=== PATIENT | female | born 1995 | race Caucasian/White ===

== ENCOUNTER 2023-10-09 10:06 | Emergency (ER) | payer OTHER, SELFPAY ==
[2023-10-09 10:21] VITALS: BP 100/64
[2023-10-09 11:00] VITALS: BP 113/64
[2023-10-09 11:08] LABS: Urine Albumin Trace (Neg - Trace); Urine Bilirubin Negative (Negative); Urine Character Slightly Cloudy (Clear); Urine Color Yellow; Urine Glucose Negative (Negative); Urine Ketone 1+ (Negative); Urine Leukocyte 2+ (Negative); Urine Nitrite Negative (Negative); Urine Occult Blood Negative (Negative); Urine Urobilinogen Negative (Neg - 1+)
[2023-10-09] MEDS: ZOFRAN 4 MG IV (11:11)
[2023-10-09] MEDS: TYLENOL 650 MG PO (11:11)
[2023-10-09] MEDS: NSS 1000 IV (11:11)
--- NOTE | 2023-10-09 11:17 | ED.GENMED ---
History of Present Illness
General
Chief Complaint: Headache
Source: patient
Exam Limitations: none
Time Seen by Provider: 10/09/23 10:36
Nursing documentation reviewed up to this point in time: agreed with
History of Present Illness
History of Present Illness:
27 y/o F with h/o depression
12 weeks preg, [facility], has had US ocnfirming
has had ongoin issues wth n/v during , not requiring meds or ED evals or admissions but the past 3 days she has had headache, low grade temp, sore throat, dry cough and back pain lower
no dysuria, hematuria
vomited x 3 today
feels dehydrated
headache
no meds taken for headache today
no previous issues with preeclampsia
unvaccinated covid
Past History
Past History
ED Past Medical History: Psychiatric (Anxiety, Depression) and Other (poison LOCO)
ED Past Surgical History: (x 2)
Social History
Tobacco: Former smoker
Alcohol: None
Personal:
Living: with family
Review of Systems
Review of Systems
Allergies reviewed?: Yes
All Other Systems: Not applicable
Phy Exam
Physical Exam
Physical Exam:
GENERAL: Alert , in no apparent distress
ENT: o/p clr, mmm. Mild pharyngeal erythema, stippling, no exudate
CARDIAC: Regular rate and rhythm .
LUNGS: Clear breath sounds bilaterally, no acute respiratory distress, no wheezes/rales/rhonchi, dry cough
ABDOMEN: Soft, without focal tenderness, no r/g, no cvat, normal bowel sounds
NEUROLOGICAL: Alert and oriented, no focal neuro deficits
SKIN: Warm and dry, skin intact.
MUSCULOSKELETAL: No edema, well perfused. neg noemy's sign
PSYCH: Normal and appropriate interaction.
Course
Orders/Labs/Results
Orders:
Orders
10/09/23 10:58
Urinalysis Reflex To Culture Urgent
Date Specimen was Collected: 10/09/23
Time Specimen was Collected: 10:39
Urine Microscopic Reflex Cult Urgent
Urine Culture Urgent
JUAN Source: U
Specimen Description:
Date Specimen was Collected: 10/09/23
Time Specimen was Collected: 10:39
0.9% Sodium Chloride 1000 ml [Nss] 1,000 ml IV BOLUS
Acetaminophen [Tylenol] 650 mg PO NOW STA
Ondansetron Injectable [Zofran] 4 mg IV NOW STA
10/09/23 11:10
COVID-19 Antigen Urgent
Source: Nasal Swab
Complete Blood Count/With Diff Urgent
Comprehensive Metabolic Panel Urgent
10/09/23 13:00
Dextrose 5%/0.9%Sodchl 1000 ml [D5/0.9% Sodium Chloride] 1,000 ml IV Wide Open mls/hr
10/09/23 13:37
CR Chest - 2 Views Urgent
Comment:
Reason For Exam: lu preg will sign the form
Abnormal Lab Results
10/09/23 10/09/23
10:58 11:10
RBC 4.12 L 10^6/uL
(4.20-5.40)
Hgb 11.8 L g/dL
(12.0-16.0)
Hct 34.0 L %
(37.0-47.0)
Absolute Neuts (auto) 8.0 H 10^3/uL
(1.4-6.5)
Absolute Lymphs (auto) 0.2 L 10^3/uL
(1.2-3.4)
Neutrophils % 91.7 H %
(42.2-75.2)
Lymphocytes % 2.5 L %
(20.5-51.1)
Carbon Dioxide 21 L mmol/L
(22-30)
Creatinine 0.5 L mg/dL
(0.6-1.0)
Urine Ketones 1+ A
(Negative)
Leukocyte Esterase Rfl 2+ A
(Negative)
Urine Bacteria (Reflex) Moderate A
(Negative)
SARS-CoV-2 Antigen Positive A
(Negative)
10/09/23 11:10
10/09/23 11:10
Vital Signs
Initial and Last Documented VS:
Initial Vital Signs
Temp Pulse Resp BP Pulse Ox
99.8 F 84 16 100/64 98
10/09/23 10:21 10/09/23 10:21 10/09/23 10:21 10/09/23 10:21 10/09/23 10:21
Last Documented Vital Signs
Temp Pulse Resp BP Pulse Ox
99.8 F 84 16 98/50 96
10/09/23 10:21 10/09/23 10:21 10/09/23 10:21 10/09/23 13:00 10/09/23 13:15
MDM/Problems Addressed
Differential Diagnosis Includes:
covid, URI, ,pneumonia,, pyelo, uti, hyperemesis
MDM/Problems Addressed:
19-year-old female 12 weeks G4, P3, IUP confirmed on ultrasound presents for 2 or 3 days of URI symptoms with a sore throat and a cough which is dry, with low-grade temperature, low back pain, lightheadedness when she stands and a few
episodes of nausea and vomiting which is not unlike her for her first trimester of this . Patient says she is unvaccinated for COVID. She has had no known exposures. Patient is borderline febrile here, mildly tachycardic, has some lower
back discomfort but no tenderness to her CVA region, no abdominal tenderness, clear lungs with a dry cough and moist mucous membranes. Her COVID test is positive
Her otherwise lab work shows what looks to be a contaminated urine with over 30 squamous cells and only 6-10 whites. At this point I would not treat this since she is not having urinary symptoms and more upper respiratory symptoms with
COVID-positive status.
discussed risk/benefit of remdesivir pt declined
cxr reviewed by me, neg
d/ chome with precautions
*Critical Care Note
Total Time (30-74mins, 75-104mins- exclusive of procedures): Not Applicable
ED Attending Note
-
Portions of this chart may have been created with voice recognition software.� Occasional wrong word or��sound alike� substitutions may have occurred due to the inherent limitations of voice recognition software.
Discharge Plan
Departure
Patient Disposition: Home (Routine Discharge)
Date of Disposition: 10/09/23
Time of Disposition: 14:05
Patient with high blood pressure during this ER visit?: No
Condition: Fair
Covid-19: Confirmed COVID-19
Discharge Problem:
COVID-19
Instructions: COVID-19 and ED
Prescriptions:
New
ondansetron HCl 4 mg tablet
4 mg PO Q8H PRN (Reason: nausea and vomiting) 1 Days Qty: 3 0RF
No Action
citalopram 20 mg Tablet
30 mg PO DAILY
prenat.vits,nasir,[id number]-yowyb Tablet
1 tab PO DAILY
acetaminophen 325 mg Tablet
650 mg PO Q4HPRN PRN (Reason: mild pain) Qty: 20 0RF
oxycodone-acetaminophen 5-325 mg Tablet
1 tab PO Q4HPRN PRN (Reason: moderate pain) Qty: 10 0RF
ibuprofen 600 mg Tablet
600 mg PO Q6HPRN PRN (Reason: cramps) Qty: 20 0RF
Referrals:
Rosalba Cifuentes, DO [Family Provider] - Follow up in 2-3 days
Activity Restrictions/Additional Instructions:
You tested positive for COVID-19. Usually the symptoms of a fever can last 5 to 7 days. You should take Tylenol every 6 hours as needed for headache and fever. Drink plenty of fluids. If you are feeling nauseated you can try a dose of Zofran 4
mg every 8-12 hours as needed.
Your urine seemed to be contaminated without obvious signs of infection, we will call you if we need to call you in an antibiotic
Return for any concerns like shortness of breath, severe fatigue, severe dehydration or any concerns
Interventions
Interventions:
*Risk Screen - Suicide Last Done: 10/09/23 10:38
*Neglect/Abuse Screening Last Done: 10/09/23 10:38
ED- Fall Risk Assessment Last Done: 10/09/23 10:38
*ED COVID-19 Vaccine History Last Done: 10/09/23 10:38
ED- Neurological Assessment Last Done: 10/09/23 10:56
Discharge Date and Time
Print Language: LITHUANIAN
[2023-10-09 11:33] LABS: % Basophils 0.2 % (0-2); % Eosinophils 0.5 % (0-6); % Immature Granulocytes 0.3 % (0-0.5); % Lymphocytes 2.5 % (20.5-51.1); % Monocytes 4.8 % (1.7-9.3); % Neutrophils 91.7 % (42.2-75.2); Absolute Lymphocytes 0.2 10^3/uL (1.2-3.4); Absolute Monocytes 0.4 10^3/uL (0.1-0.6); Hemoglobin 11.8 g/dL (12.0-16.0); Mean Corp Hgb Conc. 34.7 g/dL (33.0-37.0); Mean Corpuscular Hgb 28.6 pg (27.0-31.0); Mean Corpuscular Volume 82.5 fL (81.0-99.0); Mean Platelet Volume 9.6 fL (7.4-10.4); Nucleated Red Blood Cells % 0 %; Platelet Count 246 10^3/uL (130-400); Red Blood Cell Count 4.12 10^6/uL (4.20-5.40); Red Cell Dist. Width 13.2 % (11.5-14.5); White Blood Cell Count 8.7 10^3/uL (4.8-10.8)
[2023-10-09 11:38] LABS: COVID-19 Antigen Positive (Negative)
[2023-10-09 11:40] LABS: ALT (SGPT) 21 U/L (0-35); AST (SGOT) 20 U/L (14-36); Albumin 4.5 g/dl (3.5-5.0); Alkaline Phosphatase 67 U/L (38-126); Blood Urea Nitrogen 9 mg/dl (7-17); Calcium 9.8 mg/dl (8.4-10.2); Carbon Dioxide 21 mmol/L (22-30); Chloride 105 mmol/L (98-107); Glucose 93 mg/dl (70-99); Potassium 3.9 mmol/L (3.5-5.1); Sodium 135 mmol/L (135-145); Total Bilirubin 0.5 mg/dl (0.2-1.3); Total Protein 7.1 g/dl (6.3-8.2); eGFR > 60.00
[2023-10-09 12:00] VITALS: BP 77/32
[2023-10-09 12:15] LABS: Urine Squamous Cell >30 /LPF (Few); Urine Urothelial Cell 0-2 /LPF (FEW)
[2023-10-09 12:17] LABS: Urine Bacteria Moderate (Negative); Urine Red Blood Cell 0-2 /HPF (0-2)
[2023-10-09] MEDS: D5/0.9% SODIUM CHLORIDE 1000 IV (12:30)
[2023-10-09 13:00] VITALS: BP 98/50
== END 2023-10-09 15:35 | disposition home or self-care (01) ==
LOC: EMR 10:06
PROVIDERS: Physician Assistant; EMERGENCY PHYSICIAN Emergency Medicine; FAMILY PHYSICIAN Internal Medicine
DX: O98.511 Other viral diseases complicating pregnancy, first trimester (principal); U07.1 COVID-19; Z3A.12 12 weeks gestation of pregnancy; O99.341 Other mental disorders complicating pregnancy, first trimester; F32.A Depression, unspecified; Z87.891 Personal history of nicotine dependence; Z28.310 Unvaccinated for COVID-19
CPT/HCPCS: 99283; 96360; 96361; 71046; 80053; 81003; 81015; 85025; 87086; 87811

== ENCOUNTER 2023-12-21 11:22 | Emergency (ER) | payer OTHER, SELFPAY ==
[2023-12-21 11:24] VITALS: BP 111/62
[2023-12-21 12:50] LABS: Urine Albumin Trace (Neg - Trace); Urine Bilirubin Negative (Negative); Urine Character Very Cloudy (Clear); Urine Color Yellow; Urine Glucose Negative (Negative); Urine Ketone Trace (Negative); Urine Leukocyte 2+ (Negative); Urine Nitrite Negative (Negative); Urine Occult Blood 4+ (Negative); Urine Urobilinogen Negative (Neg - 1+)
[2023-12-21] MEDS: KEFLEX 500 MG PO (13:41)
--- NOTE | 2023-12-21 13:45 | ED.GENMED ---
History of Present Illness
General
Chief Complaint: Urinary Symptoms
Source: patient
Time Seen by Provider: 12/21/23 11:59
History of Present Illness
History of Present Illness:
28-year-old female who is at 23 weeks who presents complaining of dysuria, urinary frequency and could not get a hold of her doctor. No vaginal bleeding. Has had normal movement. Denies back pain.
Past History
Past History
ED Past Medical History: Psychiatric (Anxiety, Depression)
ED Past Surgical History: (x 2)
Social History
Tobacco: Former smoker
Alcohol: None
Personal:
Living: with family
Phy Exam
Physical Exam
Physical Exam:
CONSTITUTIONAL Patient alert and oriented to person, place and time. Well-appearing. Vital signs reviewed.
HEAD atraumatic, normocephalic.
EYES eyelids normal to inspection, Extraocular muscles intact, Conjunctiva normal, Sclera normal.
NECK normal range of motion, Trachea midline, no jugular venous distention.
RESPIRATORY CHEST No respiratory distress noted,
ABDOMEN abdomen nontender, Bowel sounds normal. No distention. Gravid uterus
BACK normal inspection, no obvious deformities, no CVA tenderness
UPPER EXTREMITY range of motion normal, Motor strength normal, no cyanosis, no edema.
LOWER EXTREMITY range of motion normal, Motor strength normal, no cyanosis, no edema.
NEURO Speech normal, No focal motor deficits, Gloria coma scale 15, Memory normal, Cranial Nerves intact to screening exam.
SKIN skin warm, dry, and normal in color.
PSYCHIATRIC patient oriented to person place and time, Normal affect.
Course
Orders/Labs/Results
Orders:
Orders
12/21/23 12:15
Urinalysis Reflex To Culture Urgent
Date Specimen was Collected: 12/21/23
Time Specimen was Collected: 11:51
Urine Microscopic Reflex Cult Urgent
Urine Culture Urgent
JUAN Source: U
Specimen Description:
Date Specimen was Collected: 12/21/23
Time Specimen was Collected: 11:51
12/21/23 12:45
Heart Tones ONCE
12/21/23 13:13
Cephalexin Monohydrate [Keflex] 500 mg PO NOW STA
Abnormal Lab Results
12/21/23
12:15
Urine Ketones Trace A
(Negative)
Ur Occult Blood Reflex 4+ A
(Negative)
Leukocyte Esterase Rfl 2+ A
(Negative)
Urine RBC 30-40 A /HPF
(0-2)
Urine WBC (Reflex) 26-30 A /HPF
(0-5)
Urine Bacteria (Reflex) Moderate A
(Negative)
Vital Signs
Initial and Last Documented VS:
Initial Vital Signs
Temp Pulse Resp BP Pulse Ox
98.2 F 97 18 111/62 97
12/21/23 11:24 12/21/23 11:24 12/21/23 11:24 12/21/23 11:24 12/21/23 11:24
Last Documented Vital Signs
Temp Pulse Resp BP Pulse Ox
98.2 F 97 18 111/62 97
12/21/23 11:24 12/21/23 11:24 12/21/23 11:24 12/21/23 11:24 12/21/23 11:24
MDM/Problems Addressed
MDM/Problems Addressed:
uti
*Pulse Oximetry
Patient hypoxic: no
*Critical Care Note
Total Time (30-74mins, 75-104mins- exclusive of procedures): Not Applicable
Data Reviewed
Source: patient
Patient Management
Escalation/DeEscalation of care consider admission/obs:
No signs of pyelonephritis. Treat with Keflex for now. check culture. ok for outpt mgmt
ED Attending Note
-
Portions of this chart may have been created with voice recognition software.� Occasional wrong word or��sound alike� substitutions may have occurred due to the inherent limitations of voice recognition software.
Discharge Plan
Departure
Patient Disposition: Home (Routine Discharge)
Date of Disposition: 12/21/23
Time of Disposition: 13:45
Patient with high blood pressure during this ER visit?: No
Discharge Problem:
UTI (urinary tract infection)
Instructions: Urinary Tract Infection, Adult (DC)
Prescriptions:
New
cephalexin 500 mg capsule
500 mg PO QID Qty: 28 0RF
No Action
citalopram 20 mg Tablet
30 mg PO DAILY
prenat.vits,nasir,gih-flin-bagfx Tablet
1 tab PO DAILY
acetaminophen 325 mg Tablet
650 mg PO Q4HPRN PRN (Reason: mild pain) Qty: 20 0RF
oxycodone-acetaminophen 5-325 mg Tablet
1 tab PO Q4HPRN PRN (Reason: moderate pain) Qty: 10 0RF
ibuprofen 600 mg Tablet
600 mg PO Q6HPRN PRN (Reason: cramps) Qty: 20 0RF
ondansetron HCl 4 mg tablet
4 mg PO Q8H PRN (Reason: nausea and vomiting) 1 Days Qty: 3 0RF
Referrals:
NONE,* [Family Provider] -
Activity Restrictions/Additional Instructions:
Return immediately for back pain, vomiting, fevers, vaginal bleeding, loss of movement, worsening symptoms or any other concerns. Please see your doctor in the next 48 hours for follow-up and reevaluation.
Interventions
Interventions:
*Risk Screen - Suicide Last Done: 12/21/23 11:24
*Neglect/Abuse Screening Last Done: 12/21/23 11:24
ED- Fall Risk Assessment Last Done: 12/21/23 11:55
*ED COVID-19 Vaccine History Last Done: 12/21/23 11:24
ED-Female Genitourinary Assessment Last Done: 12/21/23 12:40
Discharge Date and Time
Print Language: JAPANESE
[2023-12-21 13:50] LABS: Urine Bacteria Moderate (Negative); Urine Red Blood Cell 30-40 /HPF (0-2); Urine Squamous Cell 26-30 /LPF (Few); Urine White Cell 26-30 /HPF (0-5)
== END 2023-12-21 13:59 | disposition home or self-care (01) ==
LOC: EMR 11:22
PROVIDERS: EMERGENCY PHYSICIAN Emergency Medicine
DX: O23.42 Unspecified infection of urinary tract in pregnancy, second trimester (principal); O99.342 Other mental disorders complicating pregnancy, second trimester; Z3A.23 23 weeks gestation of pregnancy; F32.A Depression, unspecified; F41.9 Anxiety disorder, unspecified; Z87.891 Personal history of nicotine dependence
CPT/HCPCS: 99283; 81003; 81015; 87086

== ENCOUNTER 2024-02-11 11:06 | Emergency (ER) | payer OTHER, SELFPAY ==
[2024-02-11 11:27] VITALS: BP 120/65
[2024-02-11 12:10] LABS: % Basophils 0.3 % (0-2); % Eosinophils 0.3 % (0-6); % Immature Granulocytes 0.4 % (0-0.5); % Lymphocytes 10.2 % (20.5-51.1); % Monocytes 8.1 % (1.7-9.3); % Neutrophils 80.7 % (42.2-75.2); Absolute Lymphocytes 1.1 10^3/uL (1.2-3.4); Absolute Monocytes 0.9 10^3/uL (0.1-0.6); Absolute Neutrophils 8.4 10^3/uL (1.4-6.5); Hemoglobin 9.8 g/dL (12.0-16.0); Mean Corp Hgb Conc. 32.7 g/dL (33.0-37.0); Mean Corpuscular Hgb 28.9 pg (27.0-31.0); Mean Corpuscular Volume 88.5 fL (81.0-99.0); Mean Platelet Volume 9.7 fL (7.4-10.4); Nucleated Red Blood Cells % 0 %; Platelet Count 231 10^3/uL (130-400); Red Blood Cell Count 3.39 10^6/uL (4.20-5.40); Red Cell Dist. Width 12.8 % (11.5-14.5); White Blood Cell Count 10.4 10^3/uL (4.8-10.8)
[2024-02-11 12:25] LABS: ALT (SGPT) 15 U/L (0-35); AST (SGOT) 18 U/L (14-36); Albumin 3.8 g/dl (3.5-5.0); Alkaline Phosphatase 118 U/L (38-126); Blood Urea Nitrogen 5 mg/dl (7-17); Carbon Dioxide 21 mmol/L (22-30); Chloride 106 mmol/L (98-107); Glucose 108 mg/dl (70-99); Iron 135 ug/dl (37-170); Magnesium 1.9 mg/dl (1.6-2.3); Potassium 3.7 mmol/L (3.5-5.1); Sodium 137 mmol/L (135-145); Total Bilirubin 0.2 mg/dl (0.2-1.3); Total Protein 6.5 g/dl (6.3-8.2); eGFR > 60.00
[2024-02-11 12:34] LABS: Percent Saturation 28 % (20-50); Total Iron Binding Capacity 471 ug/dl (265-497)
[2024-02-11 12:58] LABS: TSH Reflex To Free T4 0.96 uIU/ml (0.47-4.68)
[2024-02-11 13:04] LABS: Ferritin 9.9 ng/ml (6.24-137)
[2024-02-11 13:24] VITALS: BP 96/66
--- NOTE | 2024-02-11 13:32 | ED.GENMED ---
History of Present Illness
<KARO Euceda - Last Filed: 02/11/24 16:53>
General
Chief Complaint: Abnormal Lab Value
Source: patient
Exam Limitations: none
Time Seen by Provider: 02/11/24 13:01
Nursing documentation reviewed up to this point in time: agreed with
History of Present Illness
History of Present Illness:
28 yr old female approx 30 wks presents to the ER for evaluation. For the past 3 weeks she is having heart racing and shortness of breath with exertion. She reports this is worse when she is walking up the steps or carrying her other
child. She has no prior history of DVT PE. No family history of DVT PE. She denies any lower extremity swelling. She denies any symptoms at rest.
She was told her iron was low about 1-1/2 weeks ago and is taking the iron tablets but vomiting them. Denies any recent illness fever chills cough.
She has no abdominal pain no vaginal bleeding no complaints of abdominal pain or cramping she does feel the baby move normally.
Patient is followed by at [facility].
Past History
<KARO Euceda - Last Filed: 02/11/24 16:53>
Past History
ED Past Medical History: Psychiatric (Anxiety, Depression)
ED Past Surgical History: (x 2)
Social History
Tobacco: Former smoker
Alcohol: None
Personal:
Living: with family
Review of Systems
<KARO Euceda - Last Filed: 02/11/24 16:53>
Review of Systems
Allergies reviewed?: Yes
All Other Systems: ROS reviewed and negative except as documented in HPI and ROS
Constitutional: Reports no symptoms
Respiratory: Reports trouble breathing
Cardiac: Reports palpitations
ABD/GI: Reports no symptoms
: Reports no symptoms
Musculoskeletal: Reports no symptoms
Skin: Reports no symptoms
Neurological: Reports no symptoms
Psychiatric: Reports no symptoms
Phy Exam
<KARO Euceda - Last Filed: 02/11/24 16:53>
General Physical Exam
General Presentation: no apparent distress
General age: appears stated age
General Skin: warm and dry
General Habitus: normal
General Mental: alert
General Hydration: appears well hydrated
Cardiovascular Exam
Cardiovascular Exam: tachycardia
Pulmonary Exam
Pulmonary Exam: lungs clear and no respiratory distress
Gastrointestinal Exam
Gastrointestinal Exam: other (Gravid abdomen)
Neurological Exam
Neurological Exam: alert and oriented x3
Musculoskeletal Exam
Musculoskeletal Exam: full ROM and other (No lower extremity swelling)
Skin Exam
Skin Exam: normal color and warm/dry
Psychiatric Exam
Psychiatric Exam: normal mood/affect
Course
<KARO Euceda - Last Filed: 02/11/24 16:53>
Orders/Labs/Results
Orders:
Orders
02/11/24 11:32
EKG [Electrocardiogram (*1)] Urgent
Reason for Study: Shortness of Breath
EKG- Treatment ONCE
02/11/24 11:52
Complete Blood Count/With Diff Urgent
Comprehensive Metabolic Panel Urgent
Ferritin Urgent
Iron Urgent
Magnesium Urgent
TIBC [Total Iron Binding] Urgent
TSH Reflex To Free T4 Urgent
02/11/24 13:43
Add On- LAB Urgent
Tests Added?: iron and tibc
02/11/24 14:36
0.9% Sodium Chloride 1000 ml [Nss] 1,000 ml IV BOLUS
02/11/24 16:45
Heart Tones ONCE
02/11/24 16:58
DDimer [D-Dimer] Urgent
Urinalysis Reflex To Culture Urgent
Date Specimen was Collected: 02/11/24
Time Specimen was Collected: 15:18
Urine Microscopic Reflex Cult Urgent
Urine Culture Urgent
JUAN Source: U
Specimen Description:
Date Specimen was Collected: 02/11/24
Time Specimen was Collected: 15:18
Abnormal Lab Results
02/11/24 02/11/24
11:52 16:58
RBC 3.39 L 10^6/uL
(4.20-5.40)
Hgb 9.8 L g/dL
(12.0-16.0)
Hct 30.0 L %
(37.0-47.0)
MCHC 32.7 L g/dL
(33.0-37.0)
Absolute Neuts (auto) 8.4 H 10^3/uL
(1.4-6.5)
Absolute Lymphs (auto) 1.1 L 10^3/uL
(1.2-3.4)
Absolute Monos (auto) 0.9 H 10^3/uL
(0.1-0.6)
Neutrophils % 80.7 H %
(42.2-75.2)
Lymphocytes % 10.2 L %
(20.5-51.1)
D-Dimer 0.52 H ug/mlFEU
(0.00-0.50)
Carbon Dioxide 21 L mmol/L
(22-30)
BUN 5 L mg/dl
(7-17)
Creatinine 0.4 L mg/dL
(0.6-1.0)
Glucose 108 H mg/dl
(70-99)
Urine Ketones 3+ A
(Negative)
Leukocyte Esterase Rfl 1+ A
(Negative)
Urine Bacteria (Reflex) Many A
(Negative)
02/11/24 11:52
02/11/24 11:52
Vital Signs
Initial and Last Documented VS:
Initial Vital Signs
Temp Pulse Resp BP Pulse Ox
98.8 F 120 16 120/65 98
02/11/24 11:27 02/11/24 11:27 02/11/24 11:27 02/11/24 11:27 02/11/24 11:27
Last Documented Vital Signs
Temp Pulse Resp BP Pulse Ox
98.8 F 106 17 97/53 98
02/11/24 11:27 02/11/24 17:45 02/11/24 17:45 02/11/24 17:00 02/11/24 17:45
<Katherine Marquez MD - Last Filed: 02/11/24 14:50>
Orders/Labs/Results
Orders:
Orders
02/11/24 11:32
EKG [Electrocardiogram (*1)] Urgent
Reason for Study: Shortness of Breath
EKG- Treatment ONCE
02/11/24 11:52
Complete Blood Count/With Diff Urgent
Comprehensive Metabolic Panel Urgent
Ferritin Urgent
Iron Urgent
Magnesium Urgent
TIBC [Total Iron Binding] Urgent
TSH Reflex To Free T4 Urgent
02/11/24 13:43
Add On- LAB Urgent
Tests Added?: iron and tibc
02/11/24 14:36
0.9% Sodium Chloride 1000 ml [Nss] 1,000 ml IV BOLUS
02/11/24 16:45
Heart Tones ONCE
02/11/24 16:58
DDimer [D-Dimer] Urgent
Urinalysis Reflex To Culture Urgent
Date Specimen was Collected: 02/11/24
Time Specimen was Collected: 15:18
Urine Microscopic Reflex Cult Urgent
Urine Culture Urgent
JUAN Source: U
Specimen Description:
Date Specimen was Collected: 02/11/24
Time Specimen was Collected: 15:18
Abnormal Lab Results
02/11/24 02/11/24
11:52 16:58
RBC 3.39 L 10^6/uL
(4.20-5.40)
Hgb 9.8 L g/dL
(12.0-16.0)
Hct 30.0 L %
(37.0-47.0)
MCHC 32.7 L g/dL
(33.0-37.0)
Absolute Neuts (auto) 8.4 H 10^3/uL
(1.4-6.5)
Absolute Lymphs (auto) 1.1 L 10^3/uL
(1.2-3.4)
Absolute Monos (auto) 0.9 H 10^3/uL
(0.1-0.6)
Neutrophils % 80.7 H %
(42.2-75.2)
Lymphocytes % 10.2 L %
(20.5-51.1)
D-Dimer 0.52 H ug/mlFEU
(0.00-0.50)
Carbon Dioxide 21 L mmol/L
(22-30)
BUN 5 L mg/dl
(7-17)
Creatinine 0.4 L mg/dL
(0.6-1.0)
Glucose 108 H mg/dl
(70-99)
Urine Ketones 3+ A
(Negative)
Leukocyte Esterase Rfl 1+ A
(Negative)
Urine Bacteria (Reflex) Many A
(Negative)
02/11/24 11:52
02/11/24 11:52
Vital Signs
Initial and Last Documented VS:
Initial Vital Signs
Temp Pulse Resp BP Pulse Ox
98.8 F 120 16 120/65 98
02/11/24 11:27 02/11/24 11:27 02/11/24 11:27 02/11/24 11:27 02/11/24 11:27
Last Documented Vital Signs
Temp Pulse Resp BP Pulse Ox
98.8 F 106 17 97/53 98
02/11/24 11:27 02/11/24 17:45 02/11/24 17:45 02/11/24 17:00 02/11/24 17:45
<Shaheen Arteaga PA-C - Last Filed: 02/11/24 19:47>
Orders/Labs/Results
Orders:
Orders
02/11/24 11:32
EKG [Electrocardiogram (*1)] Urgent
Reason for Study: Shortness of Breath
EKG- Treatment ONCE
02/11/24 11:52
Complete Blood Count/With Diff Urgent
Comprehensive Metabolic Panel Urgent
Ferritin Urgent
Iron Urgent
Magnesium Urgent
TIBC [Total Iron Binding] Urgent
TSH Reflex To Free T4 Urgent
02/11/24 13:43
Add On- LAB Urgent
Tests Added?: iron and tibc
02/11/24 14:36
0.9% Sodium Chloride 1000 ml [Nss] 1,000 ml IV BOLUS
02/11/24 16:45
Heart Tones ONCE
02/11/24 16:58
DDimer [D-Dimer] Urgent
Urinalysis Reflex To Culture Urgent
Date Specimen was Collected: 02/11/24
Time Specimen was Collected: 15:18
Urine Microscopic Reflex Cult Urgent
Urine Culture Urgent
JUAN Source: U
Specimen Description:
Date Specimen was Collected: 02/11/24
Time Specimen was Collected: 15:18
Abnormal Lab Results
02/11/24 02/11/24
11:52 16:58
RBC 3.39 L 10^6/uL
(4.20-5.40)
Hgb 9.8 L g/dL
(12.0-16.0)
Hct 30.0 L %
(37.0-47.0)
MCHC 32.7 L g/dL
(33.0-37.0)
Absolute Neuts (auto) 8.4 H 10^3/uL
(1.4-6.5)
Absolute Lymphs (auto) 1.1 L 10^3/uL
(1.2-3.4)
Absolute Monos (auto) 0.9 H 10^3/uL
(0.1-0.6)
Neutrophils % 80.7 H %
(42.2-75.2)
Lymphocytes % 10.2 L %
(20.5-51.1)
D-Dimer 0.52 H ug/mlFEU
(0.00-0.50)
Carbon Dioxide 21 L mmol/L
(22-30)
BUN 5 L mg/dl
(7-17)
Creatinine 0.4 L mg/dL
(0.6-1.0)
Glucose 108 H mg/dl
(70-99)
Urine Ketones 3+ A
(Negative)
Leukocyte Esterase Rfl 1+ A
(Negative)
Urine Bacteria (Reflex) Many A
(Negative)
02/11/24 11:52
02/11/24 11:52
Vital Signs
Initial and Last Documented VS:
Initial Vital Signs
Temp Pulse Resp BP Pulse Ox
98.8 F 120 16 120/65 98
02/11/24 11:27 02/11/24 11:27 02/11/24 11:27 02/11/24 11:27 02/11/24 11:27
Last Documented Vital Signs
Temp Pulse Resp BP Pulse Ox
98.8 F 106 17 97/53 98
02/11/24 11:27 02/11/24 17:45 02/11/24 17:45 02/11/24 17:00 02/11/24 17:45
<KARO Euceda - Last Filed: 02/11/24 16:53>
MDM/Problems Addressed
MDM/Problems Addressed:
28 yr old female is approximately 30 weeks and presented with SOB w/ exertion .patient is followed by DR Angelica SMITH at [facility].
treated for low iron and is taking iron supplements however will vomit after taking them. She presents awake alert no acute distress lungs are clear heart rate in the low 100s. No lower extremity swelling no prior history of DVT PE. She complains
of symptoms only with exertion.
She is non toxic appearing she is anemic with a hemoglobin 9.8 which is also likely contributing to her symptoms. TIBC/Ferritin levels reviewed iron is 135 TIBC 471 with ferritin 9.9
Case reviewed with ED physician who evaluated patient .we did review imaging for PE however with patient's symptoms with exertion only at rest not likely PE .pt agrees to hold off of imaging CAse reviewed with pt's personnel clerks supervisor SARAH Hammond I
did review iron studies with him as well and patient's presenting symptoms. She has a follow-up appointment with their group February 16 it is likely the patient may need iron transfusions because despite being on iron her ferritin is still on the
lower side of 9.9.
I went into discuss discharge patient however now concerned about even the possibility of PE. Will order D-dimer and if negative plan to discharge home with follow-up as documented above if possible obvious get order ct angio.UA pending.
<Shaheen Arteaga PA-C - Last Filed: 02/11/24 19:47>
*Critical Care Note
Total Time (30-74mins, 75-104mins- exclusive of procedures): Not Applicable
<KARO Euceda - Last Filed: 02/11/24 16:53>
Patient Management
Discussion with other providers: Refrigeration Technician (DR Manish SMITH [facility] )
<Shaheen Arteaga PA-C - Last Filed: 02/11/24 19:47>
Update Note
Update Note:
Assumed care of pt from Erin Jose NP. D dimer minimally elevated however meets cutoff criteria in 3rd trimester . No need for CTA chest. D/c to outpatient OBGYN f/u
ED Attending Note
<KARO Euceda - Last Filed: 02/11/24 16:53>
-
Portions of this chart may have been created with voice recognition software.� Occasional wrong word or��sound alike� substitutions may have occurred due to the inherent limitations of voice recognition software.
<Katherine Marquez MD - Last Filed: 02/11/24 14:50>
ED Attending Note
Patient seen and examined by attending physician: Yes
I performed the substantive portion of visit, reviewed & personally made and approve the management plan that is documented in note by myself or TERESSA.: Yes
ED Attending Note:
I have seen and evaluated the patient with a [id number] encounter. I have spoken to the [PA] and involved in the medical history, the physical exam, medical decision making.
Evaluation and management service: agree unless noted differently below.
Results interpretation: agree unless noted differently below.
Patient is a 28-year-old G5, P4 at 30 weeks presenting to the emergency department shortness of breath. Patient states that about 2 weeks ago she noticed some shortness of breath palpitations lightheadedness dizziness especially with
movement. She states that she does have multiple children at home and whenever she is picking them up or running after them she noticed the symptoms come on. She did talk to her TYPO MACHINE OPERATOR who had some blood work done and they thought it was related
to her iron levels. She was started on iron supplement however is unable to keep it down. She does have multiple episodes of nausea vomiting since she started taking. She denies any leg swelling hemoptysis recent travel family history of blood
clots or personal history of blood clot. She denies any personal cardiac history. She does state that she does feel lightheaded dizzy with these episodes and does feel slightly dehydrated. She has not received IV iron transfusion just yet. She
did talk to her OB and given that she was having lightheadedness dizziness he told her to come here for further evaluation. On exam patient is resting comfortably. Her lungs are clear to auscultation bilaterally. She does not have any swelling on
exam to her lower extremities.
Differential consists of anemia versus dehydration versus related changes. I did consider PE however less likely as she does not have any other risk factors besides being she is not hypoxic. Her heart rate is slightly elevated
in the low 100s but likely secondary to her . In addition patient symptoms are only when she is playing with her kids or with exertion which makes PE less likely. We did have a long discussion about risk versus benefit obtaining CT scan
to further evaluate it. At this time we will hold off on obtaining CT PE. Did consider ACS however less likely given patient's age and medical problems. EKG obtained with does not show any ST changes or axis deviation. Will give her IV fluids.
Blood work obtained prior evaluation does show an hemoglobin that is slightly low however she is not at the threshold for transfusion. Will discuss with patient's OB team. She will follow-up with her OB team to keep an eye out on the symptoms.
Anticipate discharge.
Discharge Plan
Departure
Patient Disposition: Home (Routine Discharge)
Date of Disposition: 02/11/24
Time of Disposition: 17:36
Patient with high blood pressure during this ER visit?: No
Condition: Fair
Covid-19: Not Applicable
Discharge Problem:
dyspnea, Anemia affecting
Instructions: Shortness of Breath, Adult ED
Prescriptions:
No Action
citalopram 20 mg Tablet
30 mg PO DAILY
prenat.vits,nasir,gen-ghal-pzxqi Tablet
1 tab PO DAILY
acetaminophen 325 mg Tablet
650 mg PO Q4HPRN PRN (Reason: mild pain) Qty: 20 0RF
oxycodone-acetaminophen 5-325 mg Tablet
1 tab PO Q4HPRN PRN (Reason: moderate pain) Qty: 10 0RF
ibuprofen 600 mg Tablet
600 mg PO Q6HPRN PRN (Reason: cramps) Qty: 20 0RF
ondansetron HCl 4 mg tablet
4 mg PO Q8H PRN (Reason: nausea and vomiting) 1 Days Qty: 3 0RF
cephalexin 500 mg capsule
500 mg PO QID Qty: 28 0RF
Referrals:
Rosalba Cifuentes, DO [Family Provider] -
Genet Dominguez, DO [Non-Admitting Privileges] -
Activity Restrictions/Additional Instructions:
As discussed follow-up with your TYPO MACHINE OPERATOR as scheduled. As discussed you may need iron transfusions please discuss this further with your TYPO MACHINE OPERATOR. Return if any worsening of symptoms.
Interventions
Interventions:
*Risk Screen - Suicide Last Done: 02/11/24 11:27
*General Assessment Last Done: 02/11/24 11:27
*Neglect/Abuse Screening Last Done: 02/11/24 11:27
ED- Fall Risk Assessment Last Done: 02/11/24 13:39
*ED COVID-19 Vaccine History Last Done: 02/11/24 13:40
*Nursing Disposition Last Done: 02/11/24 18:01
Discharge Date and Time
Discharge Date/Time: 02/11/24 18:10
Print Language: NIUEAN
[2024-02-11 14:03] VITALS: BP 102/47
[2024-02-11] MEDS: NSS 1000 IV (15:07)
[2024-02-11 15:08] VITALS: BMI 36.6
[2024-02-11 15:10] VITALS: BP 98/59
[2024-02-11 17:00] VITALS: BP 97/53
[2024-02-11 17:10] LABS: Urine Albumin Negative (Neg - Trace); Urine Bilirubin Negative (Negative); Urine Character Clear (Clear); Urine Color Yellow; Urine Glucose Negative (Negative); Urine Ketone 3+ (Negative); Urine Leukocyte 1+ (Negative); Urine Nitrite Negative (Negative); Urine Occult Blood Negative (Negative); Urine Specific Gravity 1.015 (<1.030); Urine Urobilinogen Negative (Neg - 1+)
[2024-02-11 17:17] LABS: Urine Squamous Cell >30 /LPF (Few)
[2024-02-11 17:19] LABS: Urine Red Blood Cell 0-2 /HPF (0-2)
[2024-02-11 17:20] LABS: Urine Bacteria Many (Negative)
[2024-02-11 17:22] LABS: D-Dimer 0.52 ug/mlFEU (0.00-0.50)
== END 2024-02-11 18:10 | disposition home or self-care (01) ==
LOC: EMR 11:06
PROVIDERS: Nurse Practitioner; Physician Assistant; EMERGENCY PHYSICIAN Student in an Organized Health Care Education/Training Program; FAMILY PHYSICIAN Internal Medicine
DX: O26.893 Other specified pregnancy related conditions, third trimester (principal); R06.00 Dyspnea, unspecified; O99.013 Anemia complicating pregnancy, third trimester; Z87.891 Personal history of nicotine dependence; Z3A.30 30 weeks gestation of pregnancy
CPT/HCPCS: 96360; 99284; 80053; 81003; 81015; 82728; 83540; 83550; 83735; 84443; 85025; 85379; 87086; 93005

== ENCOUNTER 2024-02-17 22:02 | Emergency (ER) | payer OTHER, SELFPAY ==
[2024-02-17 22:05] VITALS: BP 110/73
--- NOTE | 2024-02-17 22:07 | ED.GENMED ---
ED Provider Triage
<Gonzalo Encarnacion PA-C - Last Filed: 02/17/24 22:08>
-
Patient seen by provider in Triage?: Seen in Triage
Attestation: A medical screening examination has been initiated by a qualified medical provider. Based on the assessment performed at this time, it has been determined that an emergent medical condition may exist and the patient has been informed
that further medical evaluation and possible additional diagnostic testing may be needed.
HPI: 28-year-old female, currently 31 weeks , presenting to the right leg symptoms for the last few days. Patient initially endorsed sore throat which is now mostly resolved with residual cough. Has not had a few episodes of posttussive
emesis. No related complaints at this time. Denies any abdominal pain vaginal bleeding, vaginal discharge or fluid leakage. Still feels movement. COVID and flu testing ordered. Patient is otherwise stable.
GENERAL: Alert , in no apparent distress
EYE: No visual abnormalities.
NECK: Trachea midline
ENT: No visible abnormalities.
LUNGS: No acute respiratory distress
NEUROLOGICAL: Alert and oriented
SKIN: Skin intact. No visible changes.
MUSCULOSKELETAL: Moving extremities normally
PSYCH: Normal and appropriate interaction.
This is a medical evaluation conducted in person to initiate diagnostic evaluation and provide initial therapeutics. Please see further documentation by the treating clinician.
History of Present Illness
<Gonzalo Encarnacion PA-C - Last Filed: 02/17/24 22:08>
General
Chief Complaint: Cold/Flu/URI Symptoms
Time Seen by Provider: 02/18/24 00:51
<Sonia Benites NP - Last Filed: 02/18/24 02:41>
General
Source: patient
Exam Limitations: none
Nursing documentation reviewed up to this point in time: agreed with
History of Present Illness
History of Present Illness:
Patient to eD with complaint of cough. Symptoms started a few days ago. States he brother had something similar. Denies fever/chills. Reports nasal congestion, fatigue. SHe was seen here approx 1 week ago for complaint of fatigue, rapid heart
rated and SOB. She is 31weeks . Exam at that visit revealed iron deficiency anemia. hgb 9.8. Plan was for discharge home and to follow up with OB today to discuss probable iron infusion. She missed todays appointment due to cough,
fatigue. SHe states she would like to r/o PE,. This was discussed at her visit here on 02/10. Ddime at that tie 5.2. Only risk factor for her is . SHe denied any leg pain or swelling. Tongight she presents with sorethroat, nasal
congeston and cough. Denies fever/chills. Hanth self to ED for eval.
Past History
<Gonzalo Encarnacion PA-C - Last Filed: 02/17/24 22:08>
Past History
ED Past Medical History: Psychiatric (Anxiety, Depression)
ED Past Surgical History: (x 2)
Social History
Tobacco: Former smoker
Alcohol: None
Personal:
Living: with family
Review of Systems
<Sonia Benites NP - Last Filed: 02/18/24 02:41>
Review of Systems
Allergies reviewed?: Yes
All Other Systems: ROS reviewed and negative except as documented in HPI and ROS
Constitutional: Reports fatigue
EENT: Reports sore throat and runny nose
Respiratory: Reports cough
Cardiac: Reports no symptoms
ABD/GI: Reports no symptoms
: Reports no symptoms
Musculoskeletal: Reports no symptoms and other (NO pain redness or swelling to BLE)
Skin: Reports no symptoms
Neurological: Reports no symptoms
Psychiatric: Reports no symptoms
Phy Exam
<Sonia Benites NP - Last Filed: 02/18/24 02:41>
General Physical Exam
General Presentation: well appearing and no apparent distress
General age: appears stated age
General Skin: warm
General Habitus: normal
General Mental: alert
ENT Exam
ENT Exam: EOMI, TM's normal, pharynx normal, neck supple and swallowing well
Cardiovascular Exam
Cardiovascular Exam: regular rate/rhythm and no edema
Pulmonary Exam
Pulmonary Exam: lungs clear and no respiratory distress
Musculoskeletal Exam
Musculoskeletal Exam: full ROM, no edema and neuro vasc intact
Skin Exam
Skin Exam: normal color and warm/dry
Psychiatric Exam
Psychiatric Exam: normal mood/affect
Course
<Gonzalo Encarnacion PA-C - Last Filed: 02/17/24 22:08>
Orders/Labs/Results
Orders:
Orders
02/17/24 22:11
COVID-19 Antigen Urgent
Source: Nasal Swab
Influenza A+B Rapid Molecular Urgent
JUAN Source: Nasal Swab
Specimen Description:
02/18/24 01:29
CR Chest - 2 Views Urgent
Comment:
Reason For Exam: cough, SOB (31weeks preg)
US Periph Venous LOWER Ext Sigifredo Urgent
Comment:
Reason For Exam: SOB, 31weeks preg.
02/18/24 01:48
Complete Blood Count/With Diff Urgent
Comprehensive Metabolic Panel Urgent
Abnormal Lab Results
02/18/24
01:48
RBC 3.26 L 10^6/uL
(4.20-5.40)
Hgb 9.3 L g/dL
(12.0-16.0)
Hct 28.0 L %
(37.0-47.0)
Absolute Monos (auto) 0.7 H 10^3/uL
(0.1-0.6)
Lymphocytes % 16.7 L %
(20.5-51.1)
Chloride 108 H mmol/L
(98-107)
BUN 5 L mg/dl
(7-17)
Creatinine 0.4 L mg/dL
(0.6-1.0)
Glucose 105 H mg/dl
(70-99)
Alkaline Phosphatase 135 H U/L
(38-126)
02/18/24 01:48
02/18/24 01:48
Vital Signs
Initial and Last Documented VS:
Initial Vital Signs
Temp Pulse Resp BP Pulse Ox
98.5 F 137 20 110/73 97
02/17/24 22:05 02/17/24 22:05 02/17/24 22:05 02/17/24 22:05 02/17/24 22:05
Last Documented Vital Signs
Temp Pulse Resp BP Pulse Ox
98.5 F 118 20 94/56 97
02/17/24 22:05 02/18/24 00:12 02/18/24 00:12 02/18/24 00:12 02/18/24 01:51
<Sonia Benites NP - Last Filed: 02/18/24 02:41>
Orders/Labs/Results
Orders:
Orders
02/17/24 22:11
COVID-19 Antigen Urgent
Source: Nasal Swab
Influenza A+B Rapid Molecular Urgent
JUAN Source: Nasal Swab
Specimen Description:
02/18/24 01:29
CR Chest - 2 Views Urgent
Comment:
Reason For Exam: cough, SOB (31weeks preg)
US Periph Venous LOWER Ext Sigifredo Urgent
Comment:
Reason For Exam: SOB, 31weeks preg.
02/18/24 01:48
Complete Blood Count/With Diff Urgent
Comprehensive Metabolic Panel Urgent
Abnormal Lab Results
02/18/24
01:48
RBC 3.26 L 10^6/uL
(4.20-5.40)
Hgb 9.3 L g/dL
(12.0-16.0)
Hct 28.0 L %
(37.0-47.0)
Absolute Monos (auto) 0.7 H 10^3/uL
(0.1-0.6)
Lymphocytes % 16.7 L %
(20.5-51.1)
Chloride 108 H mmol/L
(98-107)
BUN 5 L mg/dl
(7-17)
Creatinine 0.4 L mg/dL
(0.6-1.0)
Glucose 105 H mg/dl
(70-99)
Alkaline Phosphatase 135 H U/L
(38-126)
02/18/24 01:48
02/18/24 01:48
Vital Signs
Initial and Last Documented VS:
Initial Vital Signs
Temp Pulse Resp BP Pulse Ox
98.5 F 137 20 110/73 97
02/17/24 22:05 02/17/24 22:05 02/17/24 22:05 02/17/24 22:05 02/17/24 22:05
Last Documented Vital Signs
Temp Pulse Resp BP Pulse Ox
98.5 F 118 20 94/56 97
02/17/24 22:05 02/18/24 00:12 02/18/24 00:12 02/18/24 00:12 02/18/24 01:51
ED Attending Note
<Gonzalo Encarnacion PA-C - Last Filed: 02/17/24 22:08>
-
Portions of this chart may have been created with voice recognition software.� Occasional wrong word or��sound alike� substitutions may have occurred due to the inherent limitations of voice recognition software.
Discharge Plan
Departure
Prescriptions:
No Action
citalopram 20 mg Tablet
30 mg PO DAILY
prenat.vits,nasir,aop-onxo-bolrl Tablet
1 tab PO DAILY
acetaminophen 325 mg Tablet
650 mg PO Q4HPRN PRN (Reason: mild pain) Qty: 20 0RF
oxycodone-acetaminophen 5-325 mg Tablet
1 tab PO Q4HPRN PRN (Reason: moderate pain) Qty: 10 0RF
ibuprofen 600 mg Tablet
600 mg PO Q6HPRN PRN (Reason: cramps) Qty: 20 0RF
ondansetron HCl 4 mg tablet
4 mg PO Q8H PRN (Reason: nausea and vomiting) 1 Days Qty: 3 0RF
cephalexin 500 mg capsule
500 mg PO QID Qty: 28 0RF
Referrals:
ABBI BECERRA [Other]
Interventions
Interventions:
*Risk Screen - Suicide Last Done: 02/17/24 22:05
*General Assessment Last Done: 02/17/24 22:05
*Neglect/Abuse Screening Last Done: 02/17/24 22:05
*ED COVID-19 Vaccine History Last Done: 02/17/24 22:05
ED- Pulmonary Assessment Last Done: 02/18/24 01:51
Discharge Date and Time
Print Language: CITIZ[place]
[2024-02-17 23:25] LABS: COVID-19 Antigen Negative (Negative)
[2024-02-18 00:12] VITALS: BP 94/56
[2024-02-18 01:43] VITALS: BMI 36.9
[2024-02-18 02:04] LABS: % Basophils 0.3 % (0-2); % Eosinophils 1.2 % (0-6); % Immature Granulocytes 0.5 % (0-0.5); % Lymphocytes 16.7 % (20.5-51.1); % Monocytes 9.2 % (1.7-9.3); % Neutrophils 72.1 % (42.2-75.2); Absolute Eosinophils 0.1 10^3/uL (0-0.7); Absolute Lymphocytes 1.2 10^3/uL (1.2-3.4); Absolute Monocytes 0.7 10^3/uL (0.1-0.6); Absolute Neutrophils 5.3 10^3/uL (1.4-6.5); Hemoglobin 9.3 g/dL (12.0-16.0); Mean Corp Hgb Conc. 33.2 g/dL (33.0-37.0); Mean Corpuscular Hgb 28.5 pg (27.0-31.0); Mean Corpuscular Volume 85.9 fL (81.0-99.0); Mean Platelet Volume 9.7 fL (7.4-10.4); Nucleated Red Blood Cells % 0 %; Platelet Count 224 10^3/uL (130-400); Red Blood Cell Count 3.26 10^6/uL (4.20-5.40); White Blood Cell Count 7.4 10^3/uL (4.8-10.8)
[2024-02-18 02:17] LABS: ALT (SGPT) 14 U/L (0-35); AST (SGOT) 18 U/L (14-36); Albumin 3.5 g/dl (3.5-5.0); Alkaline Phosphatase 135 U/L (38-126); Blood Urea Nitrogen 5 mg/dl (7-17); Carbon Dioxide 22 mmol/L (22-30); Chloride 108 mmol/L (98-107); Estimated Creatinine Clearance > 125 ml/min; Glucose 105 mg/dl (70-99); Potassium 3.5 mmol/L (3.5-5.1); Sodium 140 mmol/L (135-145); Total Bilirubin 0.2 mg/dl (0.2-1.3); Total Protein 6.3 g/dl (6.3-8.2); eGFR > 60.00
[2024-02-18 03:19] VITALS: BP 103/58
== END 2024-02-18 03:20 | disposition home or self-care (01) ==
LOC: EMR 22:02
PROVIDERS: Nurse Practitioner; Physician Assistant Medical; EMERGENCY PHYSICIAN Emergency Medicine
DX: O26.893 Other specified pregnancy related conditions, third trimester (principal); O99.513 Diseases of the respiratory system complicating pregnancy, third trimester; Z3A.31 31 weeks gestation of pregnancy; R09.81 Nasal congestion; R53.83 Other fatigue; J02.9 Acute pharyngitis, unspecified; Z11.52 Encounter for screening for COVID-19; O99.343 Other mental disorders complicating pregnancy, third trimester; F32.A Depression, unspecified; F41.9 Anxiety disorder, unspecified; Z87.891 Personal history of nicotine dependence
CPT/HCPCS: 99284; 71046; 80053; 85025; 87502; 87811; 93970

== ENCOUNTER 2024-07-02 08:42 | Emergency (ER) | payer OTHER, SELFPAY ==
[2024-07-02 08:45] VITALS: BP 108/74
--- NOTE | 2024-07-02 09:01 | ED.GENMED ---
History of Present Illness
General
Chief Complaint: Chest Pain
Source: patient
Time Seen by Provider: 07/02/24 08:54
History of Present Illness
History of Present Illness:
28-year-old female with past medical history of anxiety and depression status post section 11 weeks ago presenting to the emergency department for evaluation of sudden onset of upper abdominal pain, nausea, diarrhea and a tingling sensation
to bilateral upper arms that lasted for approximately 30 minutes but is now resolved and patient is otherwise asymptomatic. Patient states that over the last 2 weeks she has been experiencing some intermittent lower abdominal comfort around her
site but otherwise no fevers, chills, rigors, urinary symptoms, chest pain, shortness of breath, palpitations, headaches, visual changes, edema or any other concerns. Patient did not take any symptoms prior to arrival. Patient currently
breast-feeding. No other concerns.
Past History
Past History
ED Past Medical History: Psychiatric (Anxiety, Depression)
ED Past Surgical History: (x 2)
Social History
Tobacco: Former smoker
Alcohol: None
Drug: None
Personal:
Living: with family
Review of Systems
Review of Systems
All Other Systems: ROS reviewed and negative except as documented in HPI and ROS
Phy Exam
Physical Exam
Physical Exam:
GENERAL: Alert , in no apparent distress
EYE: clear conjunctiva b/l
HEAD: NCAT
ENT: mmm.
CARDIAC: Regular rate and rhythm .
LUNGS: Clear breath sounds bilaterally, no acute respiratory distress, no wheezes/rales/rhonchi
ABDOMEN: Soft, without focal tenderness, no r/g, no cvat, well-healing incision, no surrounding erythema or wound dehiscence
NEUROLOGICAL: Alert and oriented
SKIN: Warm and dry, skin intact.
MUSCULOSKELETAL: No lower extremity edema, well perfused.
PSYCH: Normal and appropriate interaction.
Scores
Heart Failure Risk
Heart Failure Risk Score: Not Applicable
Heart Score for Chest Pain Patients
STEMI patient?: Not applicable
Withdrawal Assessment of Alcohol
Withdrawal Assessment Completed?: Not applicable
Course
Orders/Labs/Results
Orders:
Orders
07/02/24 08:44
Electrocardiogram (*1) Urgent
Reason for Study: Chest Pain
07/02/24 08:45
EKG- Treatment ONCE
07/02/24 09:23
US Abdomen Complete/Upper Urgent
Comment:
Reason For Exam: upper abd pain, recent preg
07/02/24 09:28
Complete Blood Count/With Diff Urgent
Comprehensive Metabolic Panel Urgent
Lipase Urgent
Magnesium Urgent
Troponin I Urgent
07/02/24 11:28
Urinalysis Reflex To Culture Urgent
Date Specimen was Collected: 07/02/24
Time Specimen was Collected: 11:23
Urine Microscopic Reflex Cult Urgent
Urine Culture Urgent
JUAN Source: U
Specimen Description:
Date Specimen was Collected: 07/02/24
Time Specimen was Collected: 11:23
Abnormal Lab Results
07/02/24 07/02/24
09:28 11:28
MCH 26.4 L pg
(27.0-31.0)
MCHC 32.4 L g/dL
(33.0-37.0)
Absolute Neuts (auto) 6.6 H 10^3/uL
(1.4-6.5)
Lymphocytes % 19.8 L %
(20.5-51.1)
Chloride 109 H mmol/L
(98-107)
Glucose 112 H mg/dl
(70-99)
Leukocyte Esterase Rfl 1+ A
(Negative)
Urine Bacteria (Reflex) Few A
(Negative)
Urine Albumin (Reflex) 1+ A
(Neg - Trace)
07/02/24 09:28
07/02/24 09:28
Vital Signs
Initial and Last Documented VS:
Initial Vital Signs
Temp Pulse Resp BP Pulse Ox
98.4 F 92 18 108/74 97
07/02/24 08:45 07/02/24 08:45 07/02/24 08:45 07/02/24 08:45 07/02/24 08:45
Last Documented Vital Signs
Temp Pulse Resp BP Pulse Ox
98.4 F 96 18 98/54 96
07/02/24 08:45 07/02/24 11:15 07/02/24 11:15 07/02/24 11:01 07/02/24 11:15
MDM/Problems Addressed
Differential Diagnosis Includes:
Near syncope/vagal event, cholelithiasis/cholecystitis, dissection considered given the upper abdominal discomfort with arm numbness however patient asymptomatic and currently hemodynamically stable and very well-appearing making this diagnosis very
unlikely, preeclampsia however patient is now 11 weeks making this diagnosis extremely unlikely as well, colitis, postoperative abdominal pain
MDM/Problems Addressed:
28-year-old female presenting to the emergency department for evaluation of sudden onset of abdominal discomfort, nausea, diarrhea, bilateral arm paresthesia and generally feeling unwell which lasted for less than 30 minutes, now resolved. Patient
overall very well-appearing and in no acute distress. Exam otherwise reassuring without any focality. Will check labs and urine. At this time doubt any acute surgical pathology but can always add on imaging based off of lab findings. Disposition
pending.
Chronic conditions affecting care: Previous abdomnial surgery
*Radiology
Radiology exam reviewed: radiology read reviewed
*Pulse Oximetry
Patient hypoxic: no
*Critical Care Note
Total Time (30-74mins, 75-104mins- exclusive of procedures): Not Applicable
Patient Management
Escalation/DeEscalation of care consider admission/obs:
Patient's workup is reassuring. Labs without any significant abnormalities. Ultrasound without any acute findings. I did chest with patient that she does have gallstones within her gallbladder as well as ways to avoid having any complications
from this including low-fat diet, smaller frequent snacking as opposed to larger meals and avoidance of fried foods. If symptoms return patient to return to the ER for further evaluation. Otherwise stable for discharge home and outpatient
management.
ED Attending Note
-
Portions of this chart may have been created with voice recognition software.� Occasional wrong word or��sound alike� substitutions may have occurred due to the inherent limitations of voice recognition software.
Discharge Plan
Departure
Patient Disposition: Home (Routine Discharge)
Date of Disposition: 07/02/24
Time of Disposition: 12:22
Patient with high blood pressure during this ER visit?: No
Discharge Problem:
Abdominal pain, Nausea and vomiting
Instructions: Gallstones - ED discharge instructions
Prescriptions:
No Action
citalopram 20 mg Tablet
30 mg PO DAILY
prenat.vits,nasir,[id number] Tablet
1 tab PO DAILY
acetaminophen 325 mg Tablet
650 mg PO Q4HPRN PRN (Reason: mild pain) Qty: 20 0RF
oxycodone-acetaminophen 5-325 mg Tablet
1 tab PO Q4HPRN PRN (Reason: moderate pain) Qty: 10 0RF
ibuprofen 600 mg Tablet
600 mg PO Q6HPRN PRN (Reason: cramps) Qty: 20 0RF
ondansetron HCl 4 mg tablet
4 mg PO Q8H PRN (Reason: nausea and vomiting) 1 Days Qty: 3 0RF
cephalexin 500 mg capsule
500 mg PO QID Qty: 28 0RF
Referrals:
UNKNOWN - PT NOT,INTERVIEWE [Family Provider] -
Interventions
Interventions:
*Risk Screen - Suicide Last Done: 07/02/24 08:45
*General Assessment Last Done: 07/02/24 08:45
*Neglect/Abuse Screening Last Done: 07/02/24 08:45
*Nursing Disposition Last Done: 07/02/24 12:42
ED- Cardiac Assessment Last Done: 07/02/24 09:41
Discharge Date and Time
Print Language: MICRONESIAN
[2024-07-02 09:35] LABS: % Basophils 0.2 % (0-2); % Eosinophils 0.8 % (0-6); % Immature Granulocytes 0.3 % (0-0.5); % Lymphocytes 19.8 % (20.5-51.1); % Monocytes 4.7 % (1.7-9.3); % Neutrophils 74.2 % (42.2-75.2); Absolute Eosinophils 0.1 10^3/uL (0-0.7); Absolute Lymphocytes 1.8 10^3/uL (1.2-3.4); Absolute Monocytes 0.4 10^3/uL (0.1-0.6); Absolute Neutrophils 6.6 10^3/uL (1.4-6.5); Hematocrit 40.7 % (37.0-47.0); Hemoglobin 13.2 g/dL (12.0-16.0); Mean Corp Hgb Conc. 32.4 g/dL (33.0-37.0); Mean Corpuscular Hgb 26.4 pg (27.0-31.0); Mean Corpuscular Volume 81.4 fL (81.0-99.0); Mean Platelet Volume 9.1 fL (7.4-10.4); Nucleated Red Blood Cells % 0 %; Platelet Count 300 10^3/uL (130-400); Red Cell Dist. Width 13.5 % (11.5-14.5); White Blood Cell Count 8.9 10^3/uL (4.8-10.8)
[2024-07-02 09:41] VITALS: BMI 35.4
[2024-07-02 09:48] LABS: ALT (SGPT) 31 U/L (0-35); AST (SGOT) 22 U/L (14-36); Albumin 4.3 g/dl (3.5-5.0); Alkaline Phosphatase 77 U/L (38-126); Blood Urea Nitrogen 15 mg/dl (7-17); Calcium 9.6 mg/dl (8.4-10.2); Carbon Dioxide 24 mmol/L (22-30); Chloride 109 mmol/L (98-107); Estimated Creatinine Clearance > 125 ml/min; Glucose 112 mg/dl (70-99); Lipase 149 U/L (23-300); Magnesium 1.9 mg/dl (1.6-2.3); Potassium 4.2 mmol/L (3.5-5.1); Sodium 143 mmol/L (135-145); Total Bilirubin 0.4 mg/dl (0.2-1.3); eGFR > 60.00
[2024-07-02 10:02] LABS: Troponin I < 0.012 ng/ml
[2024-07-02 10:32] VITALS: BP 98/36
[2024-07-02 11:01] VITALS: BP 98/54
[2024-07-02 11:59] LABS: Urine Albumin 1+ (Neg - Trace); Urine Bilirubin Negative (Negative); Urine Character Clear (Clear); Urine Color Yellow; Urine Glucose Negative (Negative); Urine Ketone Negative (Negative); Urine Leukocyte 1+ (Negative); Urine Nitrite Negative (Negative); Urine Occult Blood Negative (Negative); Urine Specific Gravity 1.025 (<1.030); Urine Urobilinogen Negative (Neg - 1+)
[2024-07-02 12:16] LABS: Urine Bacteria Few (Negative); Urine Mucus Many; Urine Red Blood Cell 0-2 /HPF (0-2); Urine White Cell 0-2 /HPF (0-5)
== END 2024-07-02 12:42 | disposition home or self-care (01) ==
LOC: EMR 08:42
PROVIDERS: Physician Assistant Medical; EMERGENCY PHYSICIAN Emergency Medicine
DX: R10.9 Unspecified abdominal pain (principal); R11.2 Nausea with vomiting, unspecified; R19.7 Diarrhea, unspecified; R20.2 Paresthesia of skin; K80.20 Calculus of gallbladder without cholecystitis without obstruction; F41.9 Anxiety disorder, unspecified; F32.A Depression, unspecified; Z87.891 Personal history of nicotine dependence
CPT/HCPCS: 99284; 76700; 80053; 81003; 81015; 83690; 83735; 84484; 85025; 87086; 93005